=== PATIENT | female | born 1955 | race Caucasian/White ===

== ENCOUNTER 2022-08-26 16:41 | Inpatient (IN) | payer MEDICAID ==
[~2022-08-26] VITALS: Ht 160 cm; Wt 54.6 kg
[2022-08-26 17:33] LABS: BASOPHILS % (AUTO) 0.5 % (0.0-2.0); EOSINOPHILS % (AUTO) 2.2 % (1.0-6.0); HEMATOCRIT 39.6 % (36-46); HEMOGLOBIN 12.9 g/dL (12.0-16.0); LYMPHOCYTES # (AUTO) 1.1 K/uL (1.0-4.8); LYMPHOCYTES % (AUTO) 12.8 % (22.0-44.0); MEAN CORPUSCULAR HEMOGLOBIN 29.4 pg (26.0-34.0); MEAN CORPUSCULAR HGB CONC 32.5 G/dL (31.0-37.0); MEAN CORPUSCULAR VOLUME 90 fL (80-100); MONOCYTES # (AUTO) 0.8 K/uL (0.1-1.0); MONOCYTES % (AUTO) 9.2 % (2.0-9.0); NEUTROPHILS # (AUTO) 6.7 K/uL (1.8-7.7); NEUTROPHILS % (AUTO) 75.3 % (40.0-70.0); PLATELET COUNT (AUTO) 253 K/uL (150-450); RED BLOOD CELL COUNT(AUTO) 4.39 MIL/uL (4.00-5.20); RED CELL DISTRIBUTION WIDTH 14.3 % (11.5-14.5)
[2022-08-26 17:44] LABS: ANION GAP 9 mmol/L (8-16); CALCIUM, TOTAL 10.1 mg/dL (8.8-10.5); CARBON DIOXIDE 27 mmol/L (22-29); CHLORIDE 103 mmol/L (98-107); CREATININE 0.82 mg/dL (0.60-1.30); GLUCOSE,RANDOM 98 mg/dL (70-110); SODIUM SERUM 139 mmol/L (136-145); UREA NITROGEN, BLOOD 13 mg/dL (7-18)
[2022-08-26 17:46] LABS: ALANINE AMINOTRANSFERASE 21 U/L (12-78); ALBUMIN 3.8 g/dL (3.4-5.0); ALKALINE PHOSPHATASE 104 U/L (46-116); ASPARTATE AMINOTRANSFERASE 16 U/L (15-37); BILIRUBIN,TOTAL 0.5 mg/dL (0.1-1.0)
[2022-08-26 17:48] LABS: GLOMERULAR FILTR. RATE CALC > 60 mL/min (>60)
[2022-08-26] MEDS ORDERED: ZOLPIDEM TARTRATE 5 MG TABLET PO PRN (18:00)
[2022-08-26] MEDS ORDERED: ACETAMINOPHEN 500 MG TABLET PO ONE (18:15)
[2022-08-26] MEDS ORDERED: LORazepam 2 MG TABLET PO ONE (18:15)
[2022-08-26 18:49] LABS: COVID AG,FIA SOURCE NASOPHARYNGEAL
[2022-08-26] MEDS: POTASSIUM CHLORIDE 10% 40 MEQ/30 ML LIQUID UDCUP PO ONE ×2 (19:02→19:05)
[2022-08-27] MEDS: OLANZapine 5 MG RAPDIS TABLET PO PRN (00:48)
[2022-08-27] MEDS: LORazepam 1 MG TABLET PO PRN (00:48)
[2022-08-27] MEDS ORDERED: INFLUENZA VIRUS VACCINE QVS 2022-23 (6MO+)/PF 60 MCG/0.5 ML SYRINGE IM. ONE (06:00)
[2022-08-27] MEDS ORDERED: POTASSIUM CHLORIDE 20 MEQ ER TABLET PO ONE (06:45)
[2022-08-27] MEDS ORDERED: ONDANSETRON HCL 4 MG TABLET PO PRN (06:45)
[2022-08-27] MEDS ORDERED: OMEPRAZOLE 20 MG CAPSULE PO PRN (06:45)
[2022-08-27] MEDS ORDERED: CloNIDine HCL 0.1 MG TABLET PO PRN (06:45)
[2022-08-27] MEDS ORDERED: PETROLATUM,WHITE 28 GM JELLY TP PRN (06:45)
[2022-08-27] MEDS ORDERED: MAG HYDROX/AL HYDROX/SIMETH ES 30 ML SUSPENSION UDCUP PO PRN (06:45)
[2022-08-27] MEDS ORDERED: BENZOCAINE/MENTHOL LOZENGE PO PRN (06:45)
[2022-08-27] MEDS ORDERED: BACITRACIN 28 GM OINTMENT TP PRN (06:45)
[2022-08-27] MEDS ORDERED: MAGNESIUM HYDROXIDE SUSPENSION 30 ML UDCUP PO PRN (06:45)
[2022-08-27] MEDS ORDERED: LOPERAMIDE HCL 2 MG CAPSULE PO PRN (06:45)
[2022-08-27] MEDS ORDERED: DOCUSATE SODIUM 100 MG CAPSULE PO PRN (06:45)
[2022-08-27] MEDS ORDERED: ALBUTEROL SULFATE HFA 90 MCG/PUFF 8 GM INHALER IH PRN (06:45)
[2022-08-27] MEDS: LISINOPRIL 20 MG TABLET PO SCH (08:36)
[2022-08-27 09:24] VITALS: BP 192/87
[2022-08-27 10:30] VITALS: BP 146/73
[2022-08-27 20:06] VITALS: BP 114/65
[2022-08-28 07:38] LABS: CHOL/HDL RATIO 2.8 (3.9-5.7); POTASSIUM 3.7 mmol/L (3.5-5.1); THYROID STIMULATING HORMONE 0.72 uIU/mL (0.36-3.74)
[2022-08-28] MEDS: LISINOPRIL 20 MG TABLET PO SCH (09:00)
[2022-08-28 09:29] VITALS: BP 114/49
[2022-08-28 15:09] VITALS: BP 138/66
[2022-08-28 20:47] VITALS: BP 130/67
[2022-08-29 05:32] LABS: FREE T4 (FREE THYROXINE) 0.95 ng/dL (0.76-1.46)
[2022-08-29 08:22] VITALS: BP 160/87
[2022-08-29] MEDS: LISINOPRIL 20 MG TABLET PO SCH (08:34)
[2022-08-29 14:19] VITALS: BP 124/57
[2022-08-29] MEDS: FOLIC ACID 1 MG TABLET PO SCH (17:02)
[2022-08-29] MEDS: THIAMINE 100 MG TABLET PO SCH (17:02)
[2022-08-30 04:03] VITALS: BP 116/71
[2022-08-30 08:13] VITALS: BP 169/88
[2022-08-30] MEDS: LISINOPRIL 20 MG TABLET PO SCH (08:19)
[2022-08-30] MEDS: LORazepam 1 MG TABLET PO PRN (08:19)
[2022-08-30] MEDS: THIAMINE 100 MG TABLET PO SCH (08:20)
[2022-08-30] MEDS: FOLIC ACID 1 MG TABLET PO SCH (08:20)
[2022-08-30 14:28] VITALS: BP 141/73
[2022-08-30 20:00] VITALS: BP 129/72
[2022-08-31 08:17] VITALS: BP 143/85
[2022-08-31] MEDS: LISINOPRIL 20 MG TABLET PO SCH (08:44)
[2022-08-31] MEDS: FOLIC ACID 1 MG TABLET PO SCH (08:44)
[2022-08-31] MEDS: THIAMINE 100 MG TABLET PO SCH (08:44)
[2022-08-31 20:05] VITALS: BP 114/64
[2022-09-01 02:13] VITALS: BP 127/66
[2022-09-01] MEDS: IBUPROFEN 600 MG TABLET PO PRN (02:13)
[2022-09-01 08:02] VITALS: BP 98/60
[2022-09-01] MEDS: THIAMINE 100 MG TABLET PO SCH (08:07)
[2022-09-01] MEDS: LISINOPRIL 20 MG TABLET PO SCH (08:07)
[2022-09-01] MEDS: FOLIC ACID 1 MG TABLET PO SCH (08:07)
[2022-09-01 20:00] VITALS: BP 122/60
[2022-09-01] MEDS: ACETAMINOPHEN 325 MG TABLET PO PRN (23:57)
[2022-09-02] MEDS: THIAMINE 100 MG TABLET PO SCH (08:19)
[2022-09-02] MEDS: FOLIC ACID 1 MG TABLET PO SCH (08:19)
[2022-09-02] MEDS: LISINOPRIL 20 MG TABLET PO SCH (08:19)
[2022-09-02 09:46] LABS: GLUCOMETER DEV NAME(LOC) POC.BV
[2022-09-02 09:57] VITALS: BP 148/69
[2022-09-02 15:59] VITALS: BP 146/82
[2022-09-02] MEDS: ACETAMINOPHEN 325 MG TABLET PO PRN (15:59)
[2022-09-02 20:00] VITALS: BP 133/72
[2022-09-02] MEDS: OLANZapine 5 MG RAPDIS TABLET PO PRN (20:15)
[2022-09-02] MEDS: OLANZapine 5 MG TABLET PO SCH (21:00)
[2022-09-03] MEDS: THIAMINE 100 MG TABLET PO SCH (08:03)
[2022-09-03] MEDS: LISINOPRIL 20 MG TABLET PO SCH (08:03)
[2022-09-03] MEDS: FOLIC ACID 1 MG TABLET PO SCH (08:03)
[2022-09-03 09:10] VITALS: BP 140/76
[2022-09-03] MEDS: OLANZapine 5 MG TABLET PO SCH (20:20)
[2022-09-03 21:11] VITALS: BP 119/87
[2022-09-04 07:18] LABS: APPEARANCE,URINE HAZY (CLEAR); BILIRUBIN,URINE NEGATIVE (NEGATIVE); GLUCOSE, URINE (UA) NEGATIVE (NEGATIVE); KETONES,URINE NEGATIVE (NEGATIVE); LEUKOCYTE ESTERASE ,URINE MODERATE (NEGATIVE); NITRATE,URINE NEGATIVE (NEGATIVE); OCCULT BLOOD,URINE NEGATIVE (NEGATIVE); PH,URINE 5.5 (5.0-8.0); PROTEIN,URINE NEGATIVE (NEGATIVE); SPECIFIC GRAVITIY, URINE 1.013 (1.003-1.030); UROBILINOGEN,URINE <=1.0 mg/dL (<=1.0)
[2022-09-04 07:30] LABS: AMPHET/METH SCREEN,URINE NEGATIVE (NEGATIVE); BARBITURATE SCREEN, URINE NEGATIVE (NEGATIVE); BENZODIAZEPINES SCREEN,URINE NEGATIVE (NEGATIVE); CANNABINOID SCREEN,URINE NEGATIVE (NEGATIVE); COCAINE SCREEN,URINE NEGATIVE (NEGATIVE); METHADONE SCREEN, URINE NEGATIVE (NEGATIVE); OPIATE SCREEN,URINE NEGATIVE (NEGATIVE); PHENCYCLIDINE SCREEN,URINE NEGATIVE (NEGATIVE)
[2022-09-04 07:51] LABS: BACTERIA,URINE None Seen /HPF (None Seen); RBC,URINE None Seen /HPF (0-2); SQUAMOUS EPITHELIAL CELL,UR Few /LPF (None Seen)
[2022-09-04 08:11] VITALS: BP 121/76
[2022-09-04] MEDS: THIAMINE 100 MG TABLET PO SCH (08:52)
[2022-09-04] MEDS: LISINOPRIL 20 MG TABLET PO SCH (08:52)
[2022-09-04] MEDS: FOLIC ACID 1 MG TABLET PO SCH (08:54)
[2022-09-04] MEDS: MEMANTINE HCL 5 MG TABLET PO SCH ×2 (09:00→17:40)
[2022-09-04] MEDS: IBUPROFEN 600 MG TABLET PO PRN (15:38)
[2022-09-04] MEDS: OLANZapine 5 MG TABLET PO SCH (20:01)
[2022-09-04] MEDS: DONEPEZIL HCL 5 MG TABLET PO SCH (20:01)
[2022-09-04 20:36] VITALS: BP 126/62
[2022-09-05] MEDS: FOLIC ACID 1 MG TABLET PO SCH (08:11)
[2022-09-05] MEDS: THIAMINE 100 MG TABLET PO SCH (08:11)
[2022-09-05] MEDS: LISINOPRIL 20 MG TABLET PO SCH (08:11)
[2022-09-05] MEDS: MEMANTINE HCL 5 MG TABLET PO SCH ×2 (08:11→16:04)
[2022-09-05 08:18] VITALS: BP 164/82
[2022-09-05 20:00] VITALS: BP 138/70
[2022-09-05] MEDS: OLANZapine 5 MG TABLET PO SCH (20:03)
[2022-09-05] MEDS: DONEPEZIL HCL 5 MG TABLET PO SCH (20:03)
[2022-09-06 08:19] VITALS: BP 113/77
[2022-09-06] MEDS: MEMANTINE HCL 5 MG TABLET PO SCH ×2 (08:45→16:41)
[2022-09-06] MEDS: LISINOPRIL 20 MG TABLET PO SCH (08:45)
[2022-09-06] MEDS: FOLIC ACID 1 MG TABLET PO SCH (08:45)
[2022-09-06] MEDS: THIAMINE 100 MG TABLET PO SCH (08:45)
[2022-09-06 20:07] VITALS: BP 107/67
[2022-09-06] MEDS: OLANZapine 5 MG TABLET PO SCH (20:12)
[2022-09-06] MEDS: DONEPEZIL HCL 5 MG TABLET PO SCH (20:13)
[2022-09-07 08:30] VITALS: BP 148/84
[2022-09-07] MEDS: MEMANTINE HCL 5 MG TABLET PO SCH ×2 (08:43→16:22)
[2022-09-07] MEDS: FOLIC ACID 1 MG TABLET PO SCH (08:43)
[2022-09-07] MEDS: THIAMINE 100 MG TABLET PO SCH (08:43)
[2022-09-07] MEDS: LISINOPRIL 20 MG TABLET PO SCH (08:43)
[2022-09-07 12:58] VITALS: BP 132/64
[2022-09-07 20:00] VITALS: BP 120/64
[2022-09-07] MEDS: DONEPEZIL HCL 5 MG TABLET PO SCH (20:04)
[2022-09-07] MEDS: OLANZapine 5 MG TABLET PO SCH (20:04)
[2022-09-08 08:12] VITALS: BP 131/76
[2022-09-08] MEDS: FOLIC ACID 1 MG TABLET PO SCH (08:18)
[2022-09-08] MEDS: THIAMINE 100 MG TABLET PO SCH (08:18)
[2022-09-08] MEDS: LISINOPRIL 20 MG TABLET PO SCH (08:18)
[2022-09-08] MEDS: MEMANTINE HCL 5 MG TABLET PO SCH ×2 (08:19→16:27)
[2022-09-08] MEDS: DONEPEZIL HCL 5 MG TABLET PO SCH (21:30)
[2022-09-08] MEDS: OLANZapine 5 MG TABLET PO SCH (21:36)
[2022-09-08 21:44] VITALS: BP 129/78
[2022-09-09] MEDS: THIAMINE 100 MG TABLET PO SCH (08:19)
[2022-09-09] MEDS: LISINOPRIL 20 MG TABLET PO SCH (08:19)
[2022-09-09] MEDS: MEMANTINE HCL 5 MG TABLET PO SCH ×2 (08:20→16:21)
[2022-09-09] MEDS: FOLIC ACID 1 MG TABLET PO SCH (08:20)
[2022-09-09 09:39] VITALS: BP 126/60
[2022-09-09] MEDS: DONEPEZIL HCL 5 MG TABLET PO SCH (20:04)
[2022-09-09] MEDS: OLANZapine 5 MG TABLET PO SCH (20:04)
[2022-09-10 02:01] VITALS: BP 120/62
[2022-09-10 08:05] VITALS: BP 146/78
[2022-09-10] MEDS: FOLIC ACID 1 MG TABLET PO SCH (08:16)
[2022-09-10] MEDS: LISINOPRIL 20 MG TABLET PO SCH (08:16)
[2022-09-10] MEDS: THIAMINE 100 MG TABLET PO SCH (08:16)
[2022-09-10] MEDS: MEMANTINE HCL 5 MG TABLET PO SCH ×2 (08:16→16:20)
[2022-09-10] MEDS: OLANZapine 5 MG TABLET PO SCH (20:12)
[2022-09-10] MEDS: DONEPEZIL HCL 5 MG TABLET PO SCH (20:12)
[2022-09-10 21:31] VITALS: BP 135/72
[2022-09-11] MEDS: LISINOPRIL 20 MG TABLET PO SCH (08:16)
[2022-09-11] MEDS: MEMANTINE HCL 5 MG TABLET PO SCH ×2 (08:16→16:40)
[2022-09-11] MEDS: THIAMINE 100 MG TABLET PO SCH (08:16)
[2022-09-11] MEDS: FOLIC ACID 1 MG TABLET PO SCH (08:16)
[2022-09-11 08:22] VITALS: BP 123/78
[2022-09-11] MEDS: OLANZapine 5 MG RAPDIS TABLET PO PRN (20:29)
[2022-09-11] MEDS: DONEPEZIL HCL 5 MG TABLET PO SCH (20:29)
[2022-09-11] MEDS: OLANZapine 5 MG TABLET PO SCH (21:49)
[2022-09-11 22:03] VITALS: BP 122/86
[2022-09-12 08:13] VITALS: BP 165/64
[2022-09-12] MEDS: THIAMINE 100 MG TABLET PO SCH (08:52)
[2022-09-12] MEDS: FOLIC ACID 1 MG TABLET PO SCH (08:52)
[2022-09-12] MEDS: LISINOPRIL 20 MG TABLET PO SCH (08:52)
[2022-09-12] MEDS: MEMANTINE HCL 5 MG TABLET PO SCH ×2 (08:53→16:06)
[2022-09-12 10:30] VITALS: BP 140/74
[2022-09-12] MEDS: OLANZapine 5 MG TABLET PO SCH (21:23)
[2022-09-12] MEDS: DONEPEZIL HCL 5 MG TABLET PO SCH (21:23)
[2022-09-12 21:28] VITALS: BP 139/85
[2022-09-13 08:12] VITALS: BP 100/55
[2022-09-13] MEDS: THIAMINE 100 MG TABLET PO SCH (09:14)
[2022-09-13] MEDS: FOLIC ACID 1 MG TABLET PO SCH (09:14)
[2022-09-13] MEDS: LISINOPRIL 20 MG TABLET PO SCH (09:14)
[2022-09-13] MEDS: MEMANTINE HCL 5 MG TABLET PO SCH ×2 (09:15→17:32)
[2022-09-13 09:26] LABS: GLUCOMETER DEV NAME(LOC) POC.BV
[2022-09-13] MEDS: DONEPEZIL HCL 5 MG TABLET PO SCH (21:04)
[2022-09-13] MEDS: OLANZapine 5 MG TABLET PO SCH (21:04)
[2022-09-13 22:41] VITALS: BP 112/63
[2022-09-14 08:00] VITALS: BP 140/63
[2022-09-14] MEDS: THIAMINE 100 MG TABLET PO SCH (08:35)
[2022-09-14] MEDS: LISINOPRIL 20 MG TABLET PO SCH (08:35)
[2022-09-14] MEDS: MEMANTINE HCL 5 MG TABLET PO SCH ×2 (08:35→16:41)
[2022-09-14] MEDS: FOLIC ACID 1 MG TABLET PO SCH (08:35)
[2022-09-14] MEDS: DONEPEZIL HCL 5 MG TABLET PO SCH (20:13)
[2022-09-14] MEDS: OLANZapine 5 MG TABLET PO SCH (20:13)
[2022-09-14 20:50] VITALS: BP 129/79
[2022-09-15] MEDS: MEMANTINE HCL 5 MG TABLET PO SCH ×2 (08:35→16:04)
[2022-09-15] MEDS: THIAMINE 100 MG TABLET PO SCH (08:35)
[2022-09-15] MEDS: FOLIC ACID 1 MG TABLET PO SCH (08:35)
[2022-09-15] MEDS: LISINOPRIL 20 MG TABLET PO SCH (08:35)
[2022-09-15 10:13] VITALS: BP 125/72
[2022-09-15] MEDS: DONEPEZIL HCL 5 MG TABLET PO SCH (20:11)
[2022-09-15] MEDS: OLANZapine 5 MG TABLET PO SCH (20:11)
[2022-09-15 20:14] VITALS: BP 150/79
[2022-09-16] MEDS: MEMANTINE HCL 5 MG TABLET PO SCH ×2 (08:03→18:15)
[2022-09-16] MEDS: THIAMINE 100 MG TABLET PO SCH (08:03)
[2022-09-16] MEDS: LISINOPRIL 20 MG TABLET PO SCH (08:03)
[2022-09-16] MEDS: FOLIC ACID 1 MG TABLET PO SCH (08:03)
[2022-09-16 08:32] VITALS: BP 135/70
[2022-09-16 19:01] LABS: GLUCOMETER DEV NAME(LOC) BV3N.; GLUCOSE,POINT OF CARE 78 MG/DL (70-110)
[2022-09-16 20:00] VITALS: BP 140/68
[2022-09-16] MEDS: OLANZapine 5 MG TABLET PO SCH (20:14)
[2022-09-16] MEDS: DONEPEZIL HCL 5 MG TABLET PO SCH (20:14)
[2022-09-17] MEDS: THIAMINE 100 MG TABLET PO SCH (08:03)
[2022-09-17] MEDS: MEMANTINE HCL 5 MG TABLET PO SCH ×2 (08:04→16:35)
[2022-09-17] MEDS: FOLIC ACID 1 MG TABLET PO SCH (08:04)
[2022-09-17] MEDS: LISINOPRIL 20 MG TABLET PO SCH (08:04)
[2022-09-17 08:12] VITALS: BP 173/80
[2022-09-17 10:17] VITALS: BP 119/64
[2022-09-17] MEDS: DONEPEZIL HCL 5 MG TABLET PO SCH (20:05)
[2022-09-17] MEDS: OLANZapine 5 MG TABLET PO SCH (20:05)
[2022-09-18 06:16] VITALS: BP 120/70
[2022-09-18 08:04] VITALS: BP 143/75
[2022-09-18] MEDS: LISINOPRIL 20 MG TABLET PO SCH (08:15)
[2022-09-18] MEDS: THIAMINE 100 MG TABLET PO SCH (08:15)
[2022-09-18] MEDS: FOLIC ACID 1 MG TABLET PO SCH (08:16)
[2022-09-18] MEDS: MEMANTINE HCL 5 MG TABLET PO SCH ×2 (11:42→16:02)
[2022-09-18] MEDS: DONEPEZIL HCL 5 MG TABLET PO SCH (20:19)
[2022-09-18] MEDS: OLANZapine 5 MG TABLET PO SCH (20:20)
[2022-09-19 06:39] VITALS: BP 128/72
[2022-09-19] MEDS: MEMANTINE HCL 5 MG TABLET PO SCH ×2 (08:05→16:06)
[2022-09-19] MEDS: THIAMINE 100 MG TABLET PO SCH (08:05)
[2022-09-19] MEDS: FOLIC ACID 1 MG TABLET PO SCH (08:05)
[2022-09-19] MEDS: LISINOPRIL 20 MG TABLET PO SCH (08:05)
[2022-09-19 08:27] VITALS: BP 147/73
[2022-09-19 20:00] VITALS: BP 137/75
[2022-09-19] MEDS: OLANZapine 5 MG TABLET PO SCH (20:11)
[2022-09-19] MEDS: DONEPEZIL HCL 5 MG TABLET PO SCH (20:11)
[2022-09-20] MEDS: FOLIC ACID 1 MG TABLET PO SCH (08:08)
[2022-09-20] MEDS: LISINOPRIL 20 MG TABLET PO SCH (08:08)
[2022-09-20] MEDS: MEMANTINE HCL 5 MG TABLET PO SCH (08:08)
[2022-09-20] MEDS: THIAMINE 100 MG TABLET PO SCH (08:08)
[2022-09-20 08:13] VITALS: BP 125/62
[2022-09-20] MEDS ORDERED: MEMA5 PO (13:31)
[2022-09-20] MEDS ORDERED: OLAN5TAB52 PO (13:31)
== END 2022-09-20 14:30 | disposition home or self-care (01) | DRG 750 ==
LOC: EMS 16:41 → B3A 08-27 00:26
PROVIDERS: ADMIT Psychiatry & Neurology Psychiatry; ATTEND Psychiatry & Neurology Psychiatry
DX: F20.9 Schizophrenia, unspecified (principal); E87.6 Hypokalemia; F17.210 Nicotine dependence, cigarettes, uncomplicated; F41.9 Anxiety disorder, unspecified; I10 Essential (primary) hypertension; K59.00 Constipation, unspecified; G47.00 Insomnia, unspecified; F32.A Depression, unspecified; F12.90 Cannabis use, unspecified, uncomplicated; Z20.822 Contact with and (suspected) exposure to COVID-19; Z79.899 Other long term (current) drug therapy
CPT/HCPCS: 80053; 80061; 80307; 81001; 82962; 84132; 84439; 84443; 85025; 87086; 90686; 99285; G0480; J3535

== ENCOUNTER 2025-02-25 14:15 | Emergency (ER) | payer MEDICAID, OTHER ==
[~2025-02-25] VITALS: Ht 162.6 cm; Wt 69.0 kg
[~2025-02-25 14:15] MED LIST: AMLO-257 PO; CHOL25TA4 PO; CITA-144 PO; DONE-51 PO; MEMA10TA24 PO; OLAN10TA74 PO
[2025-02-25 15:37] VITALS: BP 177/75; PULSE 64; RESP 18; TEMP 97.9; O2SAT 96
[2025-02-25 15:51] LABS: BASOPHILS % (AUTO) 0.5 % (0.0-2.0); EOSINOPHILS % (AUTO) 2.8 % (1.0-6.0); HEMATOCRIT 40.9 % (36-46); HEMOGLOBIN 13.3 g/dL (12.0-16.0); LYMPHOCYTES # (AUTO) 1.9 K/uL (1.0-4.8); LYMPHOCYTES % (AUTO) 25.1 % (22.0-44.0); MEAN CORPUSCULAR HEMOGLOBIN 29.2 pg (26.0-34.0); MEAN CORPUSCULAR HGB CONC 32.5 G/dL (31.0-37.0); MEAN CORPUSCULAR VOLUME 90 fL (80-100); MONOCYTES # (AUTO) 0.7 K/uL (0.1-1.0); MONOCYTES % (AUTO) 9.5 % (2.0-9.0); NEUTROPHILS # (AUTO) 4.8 K/uL (1.8-7.7); NEUTROPHILS % (AUTO) 62.1 % (40.0-70.0); PLATELET COUNT (AUTO) 198 K/uL (150-450); RED BLOOD CELL COUNT(AUTO) 4.54 MIL/uL (4.00-5.20); WHITE BLOOD COUNT (AUTO) 7.8 K/uL (4.5-11.0)
[2025-02-25 15:59] LABS: ANION GAP 7 mmol/L (8-16); CALCIUM, TOTAL 10.5 mg/dL (8.8-10.5); CARBON DIOXIDE 30 mmol/L (22-29); CHLORIDE 105 mmol/L (98-107); CREATININE 0.85 mg/dL (0.60-1.30); GLOMERULAR FILTR. RATE CALC > 60 mL/min (>60); GLUCOSE,RANDOM 108 mg/dL (70-110); POTASSIUM 3.9 mmol/L (3.5-5.1); SODIUM SERUM 142 mmol/L (136-145); UREA NITROGEN, BLOOD 23 mg/dL (7-18)
== END 2025-02-25 19:00 | disposition home or self-care (01) ==
LOC: EMS 14:16
DX: F03.911 Unspecified dementia, unspecified severity, with agitation (principal); F20.9 Schizophrenia, unspecified; F17.210 Nicotine dependence, cigarettes, uncomplicated; Z79.899 Other long term (current) drug therapy
CPT/HCPCS: 99283; 80048; 85025; 36415; G0480